=== PATIENT | male | born 1985 | race Caucasian/White ===

== ENCOUNTER 2016-11-24 14:49 | Emergency (ER) | payer OTHER ==
[~2016-11-24] VITALS: Ht 157.5 cm; Wt 53.2 kg
[~2016-11-24 14:49] MED LIST: BUSP5TAB3 PO; DSS100 PO; RANI75TA19 PO; ZIPR80CA2 PO
[2016-11-24] MEDS ORDERED: FLUC150T PO (15:00)
[2016-11-24] MEDS ORDERED: IBUP100O11 PO (15:00)
[2016-11-24] MEDS ORDERED: CLOT15CR62 TP (15:00)
[2016-11-24] MEDS ORDERED: HydrOXYzine PAMOATE 50 MG CAPSULE PO ONE (15:45)
[2016-11-24 16:17] VITALS: BP 139/82
== END 2016-11-24 16:25 | disposition home or self-care (01) ==
LOC: EMS 14:52
DX: F41.9 Anxiety disorder, unspecified (principal); F32.9 Major depressive disorder, single episode, unspecified; F20.9 Schizophrenia, unspecified; F17.210 Nicotine dependence, cigarettes, uncomplicated; Z88.2 Allergy status to sulfonamides; Z88.8 Allergy status to other drugs, medicaments and biological substances
CPT/HCPCS: 99285

== ENCOUNTER 2017-02-18 20:34 | Emergency (ER) | payer OTHER ==
[~2017-02-18] VITALS: Ht 157.5 cm; Wt 53.0 kg
[~2017-02-18 20:34] MED LIST changes: +CLOT15CR62 TP; +FLUC150T PO; +IBUP100O11 PO
[2017-02-18] MEDS ORDERED: HYDR-4031 PO (21:13)
[2017-02-18] MEDS ORDERED: NYST30CR9 TP (21:19)
[2017-02-18] MEDS ORDERED: DiphenhydrAMINE HCL 25 MG CAPSULE PO ONE (22:30)
[2017-02-18] MEDS ORDERED: PredniSONE 20 MG TABLET PO ONE (22:30)
[2017-02-18 22:57] VITALS: BP 127/89
== END 2017-02-18 23:20 | disposition home or self-care (01) ==
LOC: EMS 20:35
DX: R21 Rash and other nonspecific skin eruption (principal); F17.210 Nicotine dependence, cigarettes, uncomplicated; Z88.1 Allergy status to other antibiotic agents; Z88.8 Allergy status to other drugs, medicaments and biological substances
CPT/HCPCS: 99283; 99406; J7512

== ENCOUNTER 2025-01-18 07:55 | Emergency (ER) | payer OTHER ==
[~2025-01-18] VITALS: Ht 157.5 cm; Wt 53.2 kg
[~2025-01-18 07:55] MED LIST changes: -BUSP5TAB3 PO; -CLOT15CR62 TP; -FLUC150T PO; +HYDR-4808 PO; -IBUP100O11 PO; +IBUP100O27 PO; +NYST30CR9 TP; +RANI-679 PO; -RANI75TA19 PO
[2025-01-18 08:05] VITALS: BP 153/89; PULSE 117; RESP 18; TEMP 98.1; O2SAT 100
[2025-01-18] MEDS ORDERED: ZIPR60CA29 PO (08:10)
[2025-01-18] MEDS ORDERED: ACET-3385 PO (08:10)
[2025-01-18] MEDS ORDERED: MULT-660 PO (08:10)
[2025-01-18 08:28] LABS: COVID AG,FIA SOURCE NASAL SWAB
[2025-01-18 09:00] LABS: INFLUENZA TYPE A NEGATIVE FOR TYPE A (NEGATIVE); INFLUENZA TYPE B NEGATIVE FOR TYPE B (NEGATIVE); SARS-COV2 (COVID) ANTIGEN,FIA Negative (Negative)
[2025-01-18] MEDS ORDERED: ACET-66 PO (09:24)
[2025-01-18] MEDS ORDERED: IBUP-1554 PO (09:24)
== END 2025-01-18 09:32 | disposition home or self-care (01) ==
LOC: EMS 07:56
DX: M60.9 Myositis, unspecified (principal); F20.9 Schizophrenia, unspecified; J06.9 Acute upper respiratory infection, unspecified; F41.9 Anxiety disorder, unspecified; F32.A Depression, unspecified; F17.210 Nicotine dependence, cigarettes, uncomplicated; F12.90 Cannabis use, unspecified, uncomplicated; Z20.822 Contact with and (suspected) exposure to COVID-19; Z98.890 Other specified postprocedural states; Z59.00 Homelessness unspecified; Z88.2 Allergy status to sulfonamides; Z88.8 Allergy status to other drugs, medicaments and biological substances; Z90.89 Acquired absence of other organs; Z79.899 Other long term (current) drug therapy
CPT/HCPCS: 87804; 99283